=== PATIENT | female | born 1985 | race Caucasian/White ===

== ENCOUNTER 2020-08-06 05:07 | Emergency (ER) | payer OTHER ==
[~2020-08-06 05:07] MED LIST: NAPROSYN EC 50500 MG PO
[2020-08-06 05:59] LABS: HEMOGLOBIN 15.5 gm/dl (12.3-15.3); RED BLOOD COUNT 5.28 M/UL (4.00-5.10)
[2020-08-06 06:17] LABS: BUN/CREATININE RATIO 20 (0-10)
[2020-08-06] MEDS ORDERED: CYCLOBENZAPRINE10 MG PO (08:21)
== END 2020-08-06 08:20 | disposition home or self-care (01) ==
LOC: ER1 05:07
PROVIDERS: Emergency Medicine
DX: M54.9 Dorsalgia, unspecified (principal); R10.817 Generalized abdominal tenderness; R11.0 Nausea; R06.02 Shortness of breath; F17.210 Nicotine dependence, cigarettes, uncomplicated; Z88.0 Allergy status to penicillin; Z88.1 Allergy status to other antibiotic agents
CPT/HCPCS: 71045; 80053; 81001; 84484; 84703; 85025; 85610; 85730; 93005; 96374; 96375; 99285; J2270; J2405; Q9967